=== PATIENT | female | born 1985 | race African-American/Black ===

== ENCOUNTER 2016-10-14 09:05 | Emergency (ER) | payer OTHER ==
[2016-10-14 09:25] VITALS: BP 106/53; PULSE 65; BMI 18.6
[2016-10-14] MEDS ORDERED: IBUPROFEN 100 MG/5 ML UNIT DOSE CUPS PO ONE (10:02)
[2016-10-14] MEDS ORDERED: IBUPROFEN 100 MG/5 ML UNIT DOSE CUPS ONE (10:07)
--- NOTE | 2016-10-14 10:09 | PDOC ---
History of Present Illness - General Chief Complaint: Injury Stated Complaint: RT ANKLE PAIN Time Seen by Provider: 10/14/16 09:35 History Source: Parent(s) Exam Limitations: Clinical Condition, Physical Impairment - History of Present Illness Initial Comments: 10/14/16 10:06 31 yr female with history of MD c/o pain to right ankle when applying her ankle brace today. Mom noticed pt was c/o pain,. no swelling or deformity. unknown trauma. Past History - Past Medical History Allergies/Adverse Reactions: Allergies Allergy/AdvReac Type Severity Reaction Status Date / Time No Known Allergies Allergy Verified 10/14/16 09:16 Home Medications: Ambulatory Orders Cholecalciferol (Vitamin D3) [Vitamin D3 -] 1,000 unit PO DAILY 10/14/16 Docusate Sodium 100 mg PO BID 10/14/16 Ferrous Sulfate 325 mg PO DAILY 10/14/16 Phenobarbital 15 mg PO DAILY 10/14/16 Other medical history: Mental retardation and cerebral palsy, muscular dystrophy - Psycho/Social/Smoking Cessation Hx Suicidal Ideation: No Smoking History: Never smoked Review of Systems - Review of Systems Able to Perform ROS?: Yes (mother reports ) Is the patient limited Amharic proficient: No Constitutional: No: Symptoms Reported HEENTM: No: Symptoms Reported Respiratory: No: Symptoms reported Cardiac (ROS): No: Symptoms Reported ABD/GI: No: Symptoms Reported : No: Symptoms Reported Musculoskeletal: Yes: See HPI *Physical Exam - Vital Signs Last Vital Signs Temp Pulse Resp BP Pulse Ox 65 16 106/53 96 10/14/16 09:16 10/14/16 09:16 10/14/16 09:16 10/14/16 09:16 - Physical Exam General Appearance: Yes: Nourished, Appropriately Dressed Extremity: positive: Normal Capillary Refill, Tender (medial right ankle, bony tenderness , no swelling, limited exam due to condition, skin intact no redness ) Integumentary: positive: Normal Color, Dry, Warm ED Treatment Course - RADIOLOGY Radiology Studies Ordered: Category Date Time Status ANKLE & FOOT-RIGHT* [RAD] Stat Radiology 10/14/16 09:46 Taken Medical Decision Making - Medical Decision Making 10/14/16 10:19 cc: ankle pain when applying brace this am mom noticed no known trauma no sign of infection will xray to r/o fracture ibuprofen for pain *DC/Admit/Observation/Transfer Diagnosis at time of Disposition: Ankle pain, right Qualifiers: Chronicity: acute Qualified Code(s): M25.571 - Pain in right ankle and joints of right foot - Discharge Dispostion Disposition: HOME Condition at time of disposition: Fair - Referrals Referrals: Marry Griffin [Primary Care Provider] - Todd Meredith MD [Staff Physician] - - Patient Instructions Additional Instructions: follow with the orthopedist next week give ibuprofen as directed for pain every 6hrs give 400mg you can apply a warm compress to the area of pain every 3-4hrs for 20 minutes if tolerated follow with primary care doctor as well if pain continues or any other concerns
== END 2016-10-14 10:20 | disposition home or self-care (01) ==
LOC: JERFT 09:05
DX: M25.571 Pain in right ankle and joints of right foot (principal); G71.0 Muscular dystrophy
CPT/HCPCS: 73610-TC-RT; 73630-TC-RT; 99281-25

== ENCOUNTER 2017-07-19 09:29 | Emergency (ER) | payer OTHER ==
[2017-07-19 09:33] VITALS: BMI 18.6
--- NOTE | 2017-07-19 09:40 | PDOC ---
History of Present Illness - General Chief Complaint: Tremors Stated Complaint: SEIZURE Time Seen by Provider: 07/19/17 09:39 History Source: Care Provider - History of Present Illness Initial Comments: 07/19/17 10:17 31yo woman with MR, cerebral palsy, hirsutism, epilepsy (last seizure 16yo ago) who presents with UE tremors this morning. According to the mother, the pt is at her neurological baseline except for the intermittent UE muscle tremors, which often precipitate her seizures. Pt takes 45mg phenobarbital in the evening , however she missed last night's dose. Mom gave her 45mg this AM when she saw the tremors. Pt was initially on phenobarbital 60mg, but it was decreased a few years ago to 45mg as she had been without seizures for 16 years. Patient saw her PCP (Dr. Marry Griffni) in May for yearly check-up, which was normal. No recent travel or sick contacts. No fever, nausea, or vomiting. Patient has been making wet diapers, denies foul odor. Last BM was Sat, which was normal. Past History - Past Medical History Allergies/Adverse Reactions: Allergies Allergy/AdvReac Type Severity Reaction Status Date / Time No Known Allergies Allergy Verified 07/19/17 09:31 Home Medications: Ambulatory Orders Cholecalciferol (Vitamin D3) [Vitamin D3 -] 1,000 unit PO DAILY 10/14/16 Docusate Sodium 100 mg PO BID 10/14/16 Ferrous Sulfate 324 mg PO DAILY 10/14/16 Phenobarbital 45 mg PO HS 10/14/16 COPD: No Seizures: Yes Other medical history: M.R , CEREBRAL PALSY. SEIZURES. - Suicide/Smoking/Psychosocial Hx Smoking History: Never smoked Have you smoked in the past 12 months: No Information on smoking cessation initiated: No Hx Alcohol Use: No Drug/Substance Use Hx: No Substance Use Type: None *Physical Exam - Vital Signs Last Vital Signs Temp Pulse Resp BP Pulse Ox 109 H 18 121/87 100 07/19/17 09:31 07/19/17 09:31 07/19/17 09:31 07/19/17 09:31 - Physical Exam General Appearance: Yes: Nourished, Appropriately Dressed Respiratory/Chest: positive: Lungs Clear, Normal Breath Sounds Cardiovascular: positive: Regular Rhythm, Regular Rate, S1, S2 Gastrointestinal/Abdominal: positive: Flat, Soft. negative: Tender, Guarding, Rebound Extremity: negative: Pedal Edema Neurologic: positive: Alert, Other (cannot follow verbal commands, L UE increased tone; braces on bilateral LE, intermittent UE tonic jerking, no tongue fasiculations, cannot assess motor strength 2/2 lack of cooperation) ED Treatment Course - LABORATORY CBC & Chemistry Diagram: 07/19/17 10:22 07/19/17 10:22 Medical Decision Making - Medical Decision Making 07/19/17 10:37 31yo woman with severe MR and h/o seizure who presents with UE tremors in the setting of missed phenobarbital dose. Will order basic labs to rule-out metabolic etiology. Dr. Grimaldo consulted. He recommends that the patient receive her evening dose of 45mg tonight as well, then continue HS dosing. *DC/Admit/Observation/Transfer Diagnosis at time of Disposition: Tremor - Discharge Dispostion Disposition: HOME Condition at time of disposition: Stable Admit: No - Referrals Referrals: Marry Griffin [Primary Care Provider] - Talon Mathur [Non Staff, Medical] - - Patient Instructions Printed Discharge Instructions: DI for Seizure Disorder -- Adult Additional Instructions: Please give her evening dose of 45mg Phenobarbital tonight so she will have a total of 90mg today. Starting tomorrow continue giving her 45mg Phenobarbital daily in the evening. Please make an appointment with the Neurologist (Dr. Mathur) within 1 week. Please return to the Emergency Department if she has seizures, becomes unresponsive, or has new, worsening, or concerning symptoms. - Post Discharge Activity
[2017-07-19 10:22] VITALS: BP 108/74; PULSE 99; TEMP 98.1
[2017-07-19 10:30] LABS: BASOPHIL 0.8 % (0-2.0); EOSINOPHIL 0.3 % (0-4.5); MCH 30.9 pg (25.7-33.7); MCHC 33.5 g/dl (32.0-36.0); MEAN CELL VOLUME 92.2 fl (80-96); MEAN PLT VOLUME 10.2 fl (7.5-11.1); NEUTROPHILS 57.5 % (42.8-82.8); PLATELET COUNT 167 K/MM3 (134-434); RDW 14.6 % (11.6-15.6); WHITE BLOOD COUNT 6.3 K/mm3 (4.0-10.0)
[2017-07-19 10:46] LABS: ALBUMIN 3.3 g/dl (3.4-5.0); ALK PHOS 83 U/L (45-117); ANION GAP 5 (8-16); BILIRUBIN,TOTAL 0.2 mg/dL (0.2-1.0); CO2 30 mmol/L (21-32); CREATININE 0.7 mg/dL (0.55-1.02); GLUCOSE,RANDOM 89 mg/dL (74-106); SGOT/AST 17 U/L (15-37); SGPT/ALT 13 U/L (12-78); TOT PROT 7.5 g/dl (6.4-8.2)
[2017-07-19 10:57] LABS: MAGNESIUM 2.1 mg/dL (1.8-2.4)
== END 2017-07-19 11:26 | disposition home or self-care (01) ==
LOC: JER 09:29
DX: R25.1 Tremor, unspecified (principal); G80.9 Cerebral palsy, unspecified; G40.909 Epilepsy, unspecified, not intractable, without status epilepticus; L68.0 Hirsutism
CPT/HCPCS: 36415; 80053; 83735; 85025; 99283-25

== ENCOUNTER 2021-03-01 17:10 | Inpatient (IN) | payer OTHER ==
[2021-03-01 17:20] VITALS: BMI 21.4
[2021-03-01] MEDS ORDERED: SODIUM CHLORIDE 1,000 ML IV STA (17:37)
[2021-03-01] MEDS ORDERED: PANTOPRAZOLE SODIUM 40 MG VIAL IVPB ONE (17:37)
[2021-03-01] MEDS ORDERED: ONDANSETRON 4 MG/2 ML VIAL ONE (17:47)
[2021-03-01] MEDS ORDERED: PANTOPRAZOLE SODIUM 40 MG VIAL ONE (17:47)
[2021-03-01] MEDS ORDERED: ONDANSETRON 4 MG/2 ML VIAL IVPUSH ONE (18:00)
[2021-03-01 18:24] LABS: BASO % 0.4 % (0-2.0); EOS % 0.2 % (0-4.5); HEMATOCRIT 41.5 % (32.4-45.2); HEMOGLOBIN 14.2 GM/dL (10.7-15.3); LYMPH % 16.1 % (8-40); MCH 31.1 pg (25.7-33.7); MCHC 34.2 g/dl (32.0-36.0); MEAN CELL VOLUME 90.9 fl (80-96); MEAN PLT VOLUME 10.4 fl (7.5-11.1); MONO % 3.2 % (3.8-10.2); NEUT % 80.1 % (42.8-82.8); PLATELET COUNT 169 10^3/uL (134-434); RBC 4.57 M/mm3 (3.60-5.2); RDW 13.4 % (11.6-15.6); WHITE BLOOD COUNT 12.7 K/mm3 (4.0-10.0)
[2021-03-01 18:46] LABS: CALCIUM 9.4 mg/dL (8.5-10.1)
[2021-03-01 18:47] LABS: BLOOD UREA NITROGEN 9.5 mg/dL (7-18); MAGNESIUM 2.5 mg/dL (1.8-2.4)
[2021-03-01 18:50] LABS: CREATININE 0.6 mg/dL (0.55-1.3); PHOSPHOROUS 2.6 mg/dL (2.5-4.9)
[2021-03-01 18:51] LABS: BILIRUBIN,TOTAL 0.6 mg/dL (0.2-1); TOT PROT 9.4 g/dl (6.4-8.2)
[2021-03-01] MEDS ORDERED: SODIUM CHLORIDE 1,000 ML IV SCH (22:45)
[2021-03-02 01:20] LABS: URINE APPEARANCE CLEAR; URINE BILIRUBIN NEGATIVE (NEGATIVE); URINE COLOR YELLOW; URINE GLUCOSE (UA) NEGATIVE (NEGATIVE); URINE KETONE NEGATIVE (NEGATIVE); URINE PROTEIN NEGATIVE (NEGATIVE)
[2021-03-02 01:21] LABS: URINE LEUK ESTERASE NEGATIVE (NEGATIVE); URINE NITRITE NEGATIVE (NEGATIVE)
[2021-03-02] MEDS: DOCUSATE SODIUM 100 MG CAPSULE (FP) PO SCH ×2 (05:13→10:11)
[2021-03-02 07:29] LABS: BASO % 0.3 % (0-2.0); EOS % 0.3 % (0-4.5); HEMOGLOBIN 12.1 GM/dL (10.7-15.3); LYMPH % 25.5 % (8-40); MCH 31.5 pg (25.7-33.7); MCHC 34.6 g/dl (32.0-36.0); MEAN CELL VOLUME 91.1 fl (80-96); MEAN PLT VOLUME 10.5 fl (7.5-11.1); MONO % 5.4 % (3.8-10.2); NEUT % 68.5 % (42.8-82.8); PLATELET COUNT 143 10^3/uL (134-434); RBC 3.84 M/mm3 (3.60-5.2); RDW 13.3 % (11.6-15.6); WHITE BLOOD COUNT 12.2 K/mm3 (4.0-10.0)
[2021-03-02 07:41] LABS: ALBUMIN 3.2 g/dl (3.4-5.0); BLOOD UREA NITROGEN 7.7 mg/dL (7-18)
[2021-03-02 07:42] LABS: CALCIUM 8.6 mg/dL (8.5-10.1)
[2021-03-02] MEDS ORDERED: POTASSIUM CHLORIDE TABS 20 MEQ TABLET.ER (FP) PO ONE (07:42)
[2021-03-02 07:44] LABS: CREATININE 0.6 mg/dL (0.55-1.3)
[2021-03-02 07:46] LABS: BILIRUBIN,TOTAL 0.5 mg/dL (0.2-1)
[2021-03-02 07:52] LABS: TOT PROT 7.2 g/dl (6.4-8.2)
[2021-03-02] MEDS: KCL 10 MEQ IVPB 10 MEQ/100 ML INFUS.BAG IVPB SCH ×3 (08:56→11:19)
[2021-03-02] MEDS ORDERED: PATIENT'S OWN MEDICATION (NON-FORMULARY) (Ferrous Sulfate [Ferrous Sulfate] 325 MG Tablet) PO SCH (10:00)
[2021-03-02] MEDS: ENOXAPARIN NA (PORCINE) 40 MG/0.4 ML DISP.SYRIN SQ SCH (10:11)
[2021-03-02] MEDS: FERROUS SO4 325 MG TABLET (FP) PO SCH (10:11)
[2021-03-02] MEDS: CHOLECALCIFEROL (VIT D3) 1,000 UNIT (25 MCG) TABLET PO SCH (10:11)
[2021-03-02] MEDS ORDERED: LACTULOSE 20 GM/30 ML UDC (FOR ORAL USE ONLY) PO PRN (10:16)
[2021-03-02] MEDS ORDERED: POLYETHYLENE GLYCOL (HEALTHYLAX) 3350 17 GM PACKET PO SCH (10:30)
[2021-03-02] MEDS ORDERED: POLYETHYLENE GLYCOL 3350 119 GM BTL PO SCH (10:30)
[2021-03-02] MEDS ORDERED: ACETAMINOPHEN 325 MG TABLET (FP) PO PRN (17:18)
[2021-03-02] MEDS: PHENobarbital 30 MG TABLET PO SCH (21:14)
[2021-03-02] MEDS ORDERED: PATIENT'S OWN MEDICATION (NON-FORMULARY) (Phenobarbital [Phenobarbital] 64.8 MG Tablet) PO SCH (22:00)
[2021-03-03 08:33] LABS: BASO % 0.4 % (0-2.0); EOS % 0.2 % (0-4.5); HEMATOCRIT 35.4 % (32.4-45.2); HEMOGLOBIN 12.1 GM/dL (10.7-15.3); LYMPH % 24.4 % (8-40); MCH 31.4 pg (25.7-33.7); MCHC 34.3 g/dl (32.0-36.0); MEAN CELL VOLUME 91.6 fl (80-96); MEAN PLT VOLUME 10.5 fl (7.5-11.1); PLATELET COUNT 137 10^3/uL (134-434); RBC 3.86 M/mm3 (3.60-5.2); RDW 13.5 % (11.6-15.6); WHITE BLOOD COUNT 9.8 K/mm3 (4.0-10.0)
[2021-03-03 08:59] LABS: ALBUMIN 3.3 g/dl (3.4-5.0); CALCIUM 8.7 mg/dL (8.5-10.1)
[2021-03-03 09:02] LABS: CREATININE 0.5 mg/dL (0.55-1.3)
[2021-03-03 09:04] LABS: BILIRUBIN,TOTAL 0.5 mg/dL (0.2-1); TOT PROT 7.2 g/dl (6.4-8.2)
[2021-03-03] MEDS: CHOLECALCIFEROL (VIT D3) 1,000 UNIT (25 MCG) TABLET PO SCH (09:59)
[2021-03-03] MEDS: FERROUS SO4 325 MG TABLET (FP) PO SCH (09:59)
[2021-03-03] MEDS: ENOXAPARIN NA (PORCINE) 40 MG/0.4 ML DISP.SYRIN SQ SCH (10:00)
[2021-03-03] MEDS: DEXTROSE 5%-0.45% SALINE 1,000 ML IV SCH (13:26)
[2021-03-03] MEDS: PHENobarbital 30 MG TABLET PO SCH (21:50)
[2021-03-04] MEDS: DEXTROSE 5%-0.45% SALINE 1,000 ML IV SCH ×2 (05:41→19:24)
[2021-03-04] MEDS: FERROUS SO4 325 MG TABLET (FP) PO SCH (09:32)
[2021-03-04] MEDS: CHOLECALCIFEROL (VIT D3) 1,000 UNIT (25 MCG) TABLET PO SCH (09:32)
[2021-03-04] MEDS: ENOXAPARIN NA (PORCINE) 40 MG/0.4 ML DISP.SYRIN SQ SCH (09:32)
[2021-03-04] MEDS: PHENobarbital 30 MG TABLET PO SCH (21:27)
[2021-03-04 22:05] VITALS: BP 141/86; PULSE 97; TEMP 98.2
[2021-03-05 10:08] LABS: CARCINOEMBRYONIC ANTIGEN 2.3 ng/mL (0.0-4.7)
== END 2021-03-04 21:45 | disposition short-term general hospital (02) | DRG 756 ==
LOC: JER 17:10 → INTOOBSV 21:36 → JERBED 21:36 → J8W 03-02 02:44 → OBSVTOIN 03-03 10:29
PROVIDERS: ADMIT Internal Medicine; ATTEND Internal Medicine
DX: C56.1 Malignant neoplasm of right ovary (principal); G80.9 Cerebral palsy, unspecified; F79 Unspecified intellectual disabilities; R11.2 Nausea with vomiting, unspecified; K59.00 Constipation, unspecified; E87.6 Hypokalemia; D72.829 Elevated white blood cell count, unspecified; R33.9 Retention of urine, unspecified; G40.909 Epilepsy, unspecified, not intractable, without status epilepticus
CPT/HCPCS: 36415; 74177-TC; 76856-TC; 80053; 81003; 82378; 82533; 83605; 83690; 83735; 84100; 84443; 84702; 85025; 86301; 86304; 87040; 87086; 93005; 93010; 99285-25; C9803; G0378; Q9967; U0003; U0005